=== PATIENT | female | born 1945 | race Two or more races ===

== ENCOUNTER 2018-07-23 23:54 | Emergency (ER) | payer OTHER ==
[~2018-07-23] VITALS: Ht 157.5 cm; Wt 68.0 kg
[~2018-07-23 23:54] MED LIST: MICARDIS80 MG PO; TOPROL XL25 MG PO
[2018-07-24] MEDS ORDERED: VISTARIL25 MG PO (02:34)
== END 2018-07-24 02:34 ==
LOC: ER 23:54
DX: R06.02 Shortness of breath (principal); R53.83 Other fatigue; F06.4 Anxiety disorder due to known physiological condition

== ENCOUNTER 2018-09-08 11:12 | Emergency (ER) | payer OTHER ==
[~2018-09-08] VITALS: Ht 152.4 cm; Wt 63.5 kg
[~2018-09-08 11:12] MED LIST changes: +VISTARIL25 MG PO
[2018-09-08] MEDS ORDERED: NORVASC10 MG (11:21)
[2018-09-08] MEDS ORDERED: BISOPROLOL-HCT1 EAC2 (11:22)
[2018-09-08] MEDS ORDERED: ZESTRIL40 M1 (11:22)
== END 2018-09-08 13:31 | disposition designated cancer center or children's hospital (05) ==
LOC: ER 11:12
DX: I21.4 Non-ST elevation (NSTEMI) myocardial infarction (principal); I10 Essential (primary) hypertension